=== PATIENT | female | born 1990 | race Two or more races ===

== ENCOUNTER 2019-01-21 06:30 | Inpatient (IN) | payer OTHER ==
[~2019-01-21] VITALS: Ht 167.6 cm; Wt 97.1 kg
[2019-01-21] MEDS ORDERED: RINGERS SOLUTION,LACTATED 1,000 ML IV ONE (06:52)
[2019-01-21] MEDS ORDERED: CITRIC ACID/SODIUM CITRATE 30 ML SOLUTION UDCUP PO ONE (07:00)
[2019-01-21] MEDS ORDERED: METOCLOPRAMIDE HCL 5 MG/ML 2 ML VIAL IVP ONE (07:00)
[2019-01-21 07:15] VITALS: BP 121/70
[2019-01-21] MEDS ORDERED: CITRIC ACID/SODIUM CITRATE 30 ML SOLUTION UDCUP ONE (07:17)
[2019-01-21] MEDS ORDERED: INFLUENZA VIRUS VACCINE QVS 2019-20 (3YR+)/PF 60 MCG/0.5 ML SYRINGE IM ONE (07:30)
[2019-01-21 07:54] LABS: BASOPHILS % (AUTO) 0.2 % (0.0-2.0); EOSINOPHILS % (AUTO) 0.6 % (1.0-6.0); HEMATOCRIT 34.3 % (36-46); HEMOGLOBIN 11.6 g/dL (12.0-16.0); LYMPHOCYTES # (AUTO) 1.5 K/uL (1.0-4.8); LYMPHOCYTES % (AUTO) 17.5 % (22.0-44.0); MEAN CORPUSCULAR HEMOGLOBIN 28.6 pg (26.0-34.0); MEAN CORPUSCULAR HGB CONC 33.8 G/dL (31.0-37.0); MEAN CORPUSCULAR VOLUME 85 fL (80-100); MONOCYTES # (AUTO) 0.7 K/uL (0.1-1.0); MONOCYTES % (AUTO) 7.7 % (2.0-9.0); NEUTROPHILS # (AUTO) 6.3 K/uL (1.8-7.7); PLATELET COUNT (AUTO)-OB 168 K/uL (150-450); RED BLOOD CELL COUNT(AUTO) 4.06 MIL/uL (4.00-5.20); RED CELL DISTRIBUTION WIDTH 15.1 % (11.5-14.5)
[2019-01-21] MEDS ORDERED: MIDAZOLAM HCL 2 MG/2 ML VIAL ONE (07:54)
[2019-01-21] MEDS ORDERED: FentaNYL CITRATE-PF 100 MCG/2 ML VIAL ONE (07:54)
[2019-01-21] MEDS ORDERED: MORPHINE SULFATE/PF 0.5 MG/ML 10 ML AMP ONE (07:54)
[2019-01-21] MEDS ORDERED: BUPIVACAINE HCL/DEX-WATER/PF 0.75% 2 ML AMP ONE (07:55)
[2019-01-21] MEDS ORDERED: FentaNYL CITRATE-PF 100 MCG/2 ML VIAL IVP PRN (08:30)
[2019-01-21] MEDS ORDERED: MEPERIDINE-PF 25 MG/ML VIAL IVP PRN (08:30)
[2019-01-21] MEDS ORDERED: HYDROmorphone 2 MG/ML SYRINGE IVP PRN (08:30)
[2019-01-21] MEDS ORDERED: ACETAMINOPHEN 1000 MG/ISO-OSM 100 ML IV ONE (08:30)
[2019-01-21] MEDS ORDERED: OxyCODONE HCL/ACETAMINOPHEN 5-325 MG TABLET PO PRN ×3 (08:30→10:00)
[2019-01-21] MEDS ORDERED: OXYTOCIN 30 UNITS/LACT RINGERS 500 ML IV ONE (09:47)
[2019-01-21] MEDS ORDERED: LANOLIN 7 GM OINTMENT TP PRN (10:00)
[2019-01-21] MEDS ORDERED: KETOROLAC TROMETHAMINE 30 MG/ML VIAL IVP SCH (12:00)
[2019-01-21] MEDS: RINGERS SOLUTION,LACTATED 1,000 ML IV SCH ×2 (12:30→20:33)
[2019-01-21] MEDS: KETOROLAC TROMETHAMINE 30 MG/ML VIAL IVP SCH ×2 (15:25→21:38)
[2019-01-21] MEDS ORDERED: OXYGEN THERAPY IH SCH (20:00)
[2019-01-21] MEDS: MAGNESIUM HYDROXIDE SUSPENSION 30 ML UDCUP PO SCH (21:32)
[2019-01-22] MEDS: KETOROLAC TROMETHAMINE 30 MG/ML VIAL IVP SCH (03:42)
[2019-01-22] MEDS ORDERED: LIDOCAINE/PF 2% 5 ML VIAL IM ONE (05:48)
[2019-01-22] MEDS ORDERED: OXYTOCIN 10 UNITS/ML VIAL IM ONE (05:48)
[2019-01-22] MEDS ORDERED: DEXAMETHASONE SOD PHOS 4 MG/ML VIAL IVP ONE (05:48)
[2019-01-22] MEDS ORDERED: METOCLOPRAMIDE HCL 5 MG/ML 2 ML VIAL IVP ONE (05:48)
[2019-01-22] MEDS ORDERED: KETOROLAC TROMETHAMINE 60 MG/2 ML VIAL IM ONE (05:48)
[2019-01-22] MEDS ORDERED: ONDANSETRON HCL 4 MG/2 ML VIAL IVP ONE (05:48)
[2019-01-22 07:23] LABS: BASOPHILS % (AUTO) 0.1 % (0.0-2.0); EOSINOPHILS % (AUTO) 0.2 % (1.0-6.0); HEMATOCRIT 29.7 % (36-46); HEMOGLOBIN 10.1 g/dL (12.0-16.0); LYMPHOCYTES # (AUTO) 1.7 K/uL (1.0-4.8); LYMPHOCYTES % (AUTO) 16.1 % (22.0-44.0); MEAN CORPUSCULAR HGB CONC 33.8 G/dL (31.0-37.0); MEAN CORPUSCULAR VOLUME 86 fL (80-100); MONOCYTES # (AUTO) 0.9 K/uL (0.1-1.0); MONOCYTES % (AUTO) 8.4 % (2.0-9.0); NEUTROPHILS # (AUTO) 8.1 K/uL (1.8-7.7); NEUTROPHILS % (AUTO) 75.2 % (40.0-70.0); PLATELET COUNT (AUTO)-OB 165 K/uL (150-450); RED BLOOD CELL COUNT(AUTO) 3.46 MIL/uL (4.00-5.20)
[2019-01-22] MEDS: MAGNESIUM HYDROXIDE SUSPENSION 30 ML UDCUP PO SCH ×2 (08:37→20:08)
[2019-01-22] MEDS: OxyCODONE HCL/ACETAMINOPHEN 5-325 MG TABLET PO PRN ×3 (08:38→20:08)
[2019-01-22] MEDS: IBUPROFEN 800 MG TABLET PO PRN ×3 (08:38→20:08)
[2019-01-23] MEDS: IBUPROFEN 800 MG TABLET PO PRN (07:45)
[2019-01-23] MEDS: OxyCODONE HCL/ACETAMINOPHEN 5-325 MG TABLET PO PRN (07:46)
[2019-01-23] MEDS ORDERED: IBUP-2070 PO (12:58)
[2019-01-23] MEDS ORDERED: PERCT PO (12:59)
== END 2019-01-23 14:15 | disposition home or self-care (01) | DRG 788 ==
LOC: 4S 06:30 → PREOBSVTOIN 02-04 06:48
PROVIDERS: ADMIT Obstetrics & Gynecology; ATTEND Obstetrics & Gynecology
PROC: 10D00Z1 Extraction of Products of Conception, Low, Open Approach (ICD-10-PCS; principal; 2019-01-21)
DX: O69.81X0 Labor and delivery complicated by cord around neck, without compression, not applicable or unspecified (principal); O34.211 Maternal care for low transverse scar from previous cesarean delivery; Z3A.39 39 weeks gestation of pregnancy; Z37.0 Single live birth
CPT/HCPCS: 86850; 86900; 86901; 87081; 90686; J0131; J0690; J1100; J1885; J2250; J2274; J2405; J2590; J2765; J3010; J3490; J7120